=== PATIENT | female | born 1945 | race Caucasian/White ===

== ENCOUNTER 2022-07-18 21:47 | Inpatient (IN) ==
[2022-07-18] MEDS ORDERED: SODIUM CHLORIDE 0.9% 1000ML 500 ML IV STA (22:02)
[2022-07-18] MEDS ORDERED: SODIUM CHLORIDE 0.9% 1000ML 1,000 ML IV STA (22:02)
--- NOTE | 2022-07-18 22:07 | Emergency Department Note ---
Impression & Plan Severe sepsis, Acute dehydration, Acute UTI (urinary tract infection), Inferior dislocation of right shoulder, Acute hypernatremia ED Provider Note Name: AAKASH BERG Age: 77 Sex: F Arrives Via: Ambulance Informant: Patient (initially poor historian) ED Provider: Shai Malin MD Chief Complaint: Altered mental status Impression: As per impressions above Medical Decision Makin-year-old female with no known past medical history arrives for evaluation of altered mental status. She was found laying on the floor at home moaning in pain with deformity of the right shoulder and obtunded. On arrival patient is tachycardic, hypothermic. She is severely dehydrated appearing. I will note prior to arrival patient received IV Ancef via EMS due to the shoulder deformity. She also had received some fentanyl and 300 mL of IV normal saline. On arrival I immediately started sepsis work-up based on findings. She had blood cultures, lactate, fluids started. She was given empiric cefepime. Unfortunately there was an issue with the lab and she had delayed to initial labs besides the elevated troponin as she had required repeat lab draws. Patient meanwhile was given 2 L normal saline. This covers a 30/kg bolus and following this patient is awake alert oriented and vastly improved. Repeat volume status exam post sepsis resuscitation reveals patient much better hydrated vitals improved and she is in no distress. Examination concerning for inferior shoulder dislocation which was confirmed by x-ray. Patient was given a small dose of Dilaudid as she was coming to with the rehydration. Pain was controlled. She was able to tolerate gentle reduction of the shoulder by me. Repeat imaging reveals shoulder reduced properly. She has good pulses and sensation on repeat examination. She does have a significant amount of edema of the entire shoulder area as well as bruising. A CT of the head and cervical spine was obtained given the altered mental status and fall which is fortunately negative for acute findings. Labs consistent with severe dehydration and there is a significant white blood cell count elevation in the setting of an elevated lactic acid. This is consistent with sepsis given the likely source as a UTI. UA is concentrated and with blood suspect rhabdo. Unclear why CK is not elevated given evidence otherwise of rhabdo. Continue to receive IV fluids. Troponin is elevated I suspect this is secondary to rhabdo as patient has no significant chest pain and this would more go along with the injury she sustained in the setting of severe dehydration. Daughter at bedside drove up from [place]. He has probably 2 to 3 days the patient was not responding to phone calls. She has been having some falls the last few weeks. Prior Medical Record and Triage/Nursing Notes reviewed by Me Differentials:Infection, dehydration, metabolic abnormality, hypo/hyperglycemia, electrolyte disturbance, anemia, hypoxia, cardiac sources, intracerebral event, toxicologic, neurologic, as well as other pathologies. Repeat Volume Status & Tissue Perfusion Assessment: 12:41am on 07/19/22. BP 152/98 HR 102 O2Sat 100% RR16 T37.2C. Patient awake alert oriented in no distress. She appears much better hydrated. She is starting to make more urine. Cap refill is brisk with good pulses throughout. Breathing comfortably and in no distress. Vital Signs: reviewed and remarkable for tachycardia, hypothermia Interventions: Normal saline bolus 2 L IV, cefepime 2 g IV, Dilaudid 0.5 mg IV x2, Labs:Reviewed and remarkable for elevated sodium/chloride, elevated BUN, elevated lactate, elevated troponin, UA concerning for infection versus concentration versus rhabdo Imaging: Radiologist interpretation reviewed by me: X-rays of the right shoulder reveal an inferior shoulder dislocation which on repeat x-ray is reduced with small avulsion fracture within joint. 1 view chest x-ray reveals no infiltrate, pneumothorax or other acute findings. 1 view pelvis x-ray reveals no fracture nor dislocation. CT of the head and cervical spine reveals no fracture nor dislocation EKG:Indication altered mental status. Interpretation by me. Sinus tachycardia at 111 bpm with a QTC of 524. There is no previous EKG for comparison. She does have some lateral ST depressions. No ectopy nor acute STEMI appreciated. Cardiac/Tele Monitoring: Cardiac Monitoring: An Order was placed for continuous cardiac monitoring. The monitor shows a rate of 105 with a sinus tach rhythm. [facility] Plan: Disposition:Hospitalization. Condition: Good History of Present Illness:77-year-old female arrives for evaluation of falling on the ground. Patient had been seen in 6 days. She was found laying on the ground in her house. She was confused altered and cold. She had a deformity of the right shoulder and arm was splinted in position. Patient received 100 mcg of fentanyl IV, Ancef 2 g IV, 300 mL warm saline IV by EMS. Patient is confused she does not know where she is. She notes her arm hurts her. She denies any other symptoms but she is too confused to get a full story. ROS: Unable to obtain due to altered mental status and confusion Past Medical History:Unable to obtain due to no mental status confusion Past Surgical History:Unable to obtain due to no mental status confusion Family History:Unable to obtain due to no mental status confusion Social History:Unable to obtain due to no mental status confusion Home Medications:Unable to obtain due to no mental status confusion Allergies:Unable to obtain due to no mental status confusion Vitals:Blood Pressure: 145/120, Pulse 120, RR 25, T 35.2C, O2 97% on RA Physical Exam: GENERAL: Patient is unwell.dehydrated appearing and in minimal distress. Cool to touch EYES: No scleral icterus, unremarkable pupils. ENT: Mucous membranes dry, no nasal congestion. NECK: No masses appreciated, nomeningismus, trachea is midline. RESPIRATORY: No dyspnea. Clear to auscultation and equal bilaterally. No wheeze, no rhonchi. CARDIOVASCULAR: Regular rate and rhythm.No murmurs, rubs, gallops appreciated. GASTROINTESTINAL: Abdomen soft, non-tender, no peritonitis.Bowel sounds positive.No masses appreciated. BACK: No midline tenderness, no CVA tenderness EXTREMITIES: Right arm held straight up above head with deformity of should joint, swelling, bruising. Distal sensation/movement and pulses intact. Weakly moves left arm/legs NEUROLOGIC: Confused, no acute motor or sensory deficits, no focal weakness, cranial nerves grossly intact. SKIN: Mottling throughout with some bruising left breast. No rash, no jaundice, no diaphoresis. GCS: 13 ED Course: Times/Reassessments: Patient reevaluated many times throughout the stay. She had rapid improvement of her mental status with resuscitation. Patient b reathing comfortably no distress and daughter at bedside after few hours having driven from [place]. Agreeable to hospitalization. Procedures: Right shoulder reduction. Indication dislocation inferiorly of the right shoulder. Unable to obtain consent given patient is obtunded and there is no contact information on the chart. It was felt that reduction of shoulder was in best interest of patient. Gentle caudal traction was placed on the patient's arm while manipulation of the palpated humeral head within the axilla slowly rotated the shoulder into the joint. Shoulder easily slid into place. Patient tolerated this well without significant distress. Repeat examination reveals sensation intact, movement intact and pulses good. Repeat evaluation on several occasions reveals no evidence of compartment syndrome nor neurovascular compromise. Repeat x-rays reveal reduction properly of the shoulder. Critical Care: I have personally spent 35 minutes of critical care time in the direct management of this patient. Severe Sepsis secondary to UTI causing AMS. This was a life/limb threatening event. This 35 minutes is in excess of all separately billable procedures. Shai Malin MD Past Med/Surg History Social History Smoking Status: Never smoker Feels Safe at Home: Yes Home Meds Home Medications Medication Instructions Recorded Confirmed aspirin 81 mg capsule,delayed 81 mg PO DAILY 07/19/22 07/19/22 release atenolol 50 mg tablet 50 mg PO DAILY 07/19/22 07/19/22 atorvastatin 10 mg tablet 10 mg PO DAILY 07/19/22 07/19/22 benzonatate 100 mg capsule 100 mg PO TID PRN Cough 07/19/22 07/19/22 escitalopram oxalate 20 mg tablet 20 mg PO DAILY 07/19/22 07/19/22 lisinopril 10 mg tablet 10 mg PO HS 07/19/22 07/19/22 mirtazapine 15 mg tablet 15 mg PO HS 07/19/22 07/19/22 omeprazole 20 mg capsule,delayed 20 mg PO BID 07/19/22 07/19/22 release Results & Data (ED) Vital Signs Vital Signs - 24 hr 07/18/22 22:26 07/18/22 22:26 07/18/22 22:26 Temperature 35.2 C L Temperature Source Rectal Pulse Rate 120 H Pulse Rate [Apical] 117 H Pulse Rhythm [Apical] Pulse Strength [Apical] Respiratory Rate 25 H 31 H Respiratory Effort / Characteristics Non-Labored Respiratory Depth Normal Respiratory Pattern Blood Pressure 145/120 H Blood Pressure [Left Arm] 134/103 H Blood Pressure Mean 128 Blood Pressure Mean [Left Arm] 113 Blood Pressure Position [Left Arm] Pulse Oximetry 97 99 97 Oxygen Delivery Method Room Air Room Air Room Air Sepsis Recent Fever Within 48 Hours No Sepsis New/Unexplained Change in Mental Status No Sepsis Action Taken by Nursing Physician Notified 07/18/22 22:33 07/18/22 22:47 07/19/22 00:00 Temperature 36.1 C L Temperature Source Oral Pulse Rate Pulse Rate [Apical] 117 H 106 H 99 H Pulse Rhythm [Apical] Regular Regular Pulse Strength [Apical] Normal Normal Respiratory Rate 26 H 18 20 Respiratory Effort / Characteristics Non-Labored Non-Labored Respiratory Depth Normal Normal Respiratory Pattern Regular Blood Pressure Blood Pressure [Left Arm] 134/103 H 152/98 H Blood Pressure Mean Blood Pressure Mean [Left Arm] 113 116 Blood Pressure Position [Left Arm] Lying Lying Pulse Oximetry 100 100 98 Oxygen Delivery Method Room Air Room Air Room Air Sepsis Recent Fever Within 48 Hours Sepsis New/Unexplained Change in Mental Status Sepsis Action Taken by Nursing Laboratory Data Result diagrams: 07/19/22 00:08 07/19/22 00:08 Lab Results 07/18/22 07/18/22 07/19/22 Range/Units 22:00 22:43 00:08 WBC 22.60 H (4.8-10.8) K/ul RBC 5.02 (3.93-5.22) M/uL Hgb 15.8 (12.0-16.0) g/dl Hct 47.2 H (34.1-44.9) % MCV 94.0 (80.0-100.0) fL MCH 31.5 (25.0-34.0) pg MCHC 33.5 (32.0-36.0) g/dL RDW Std Deviation 49.6 H (36.4-46.3) fL RDW Coeff of Jessie 14.5 (11.5-14.5) % Plt Count 344 (130-400) K/uL MPV 10.6 (9.4-12.3) fL Immature Gran % (Auto) 0.6 % Neut % (Auto) 81.9 % Lymph % (Auto) 6.7 % Eddy % (Auto) 10.7 % Eos % (Auto) 0.0 % Baso % (Auto) 0.1 % Neut # (Auto) 18.52 H (1.4-6.5) K/uL Lymph # (Auto) 1.51 (1.2-3.4) K/uL Eddy # (Auto) 2.41 H (0.24-0.82) K/uL Eos # (Auto) 0.00 (0-0.50) K/uL Baso # (Auto) 0.03 (0-0.2) K/uL Immature Gran # (Auto) 0.13 H (0.00-0.02) K/uL PT (9.0-12.0) Seconds INR (0.9-1.1) APTT (21.0-31.0) Seconds PTT Ratio Sodium (136-145) mmol/L Potassium (3.5-5.1) mmol/L Chloride (98-107) mmol/L Carbon Dioxide (21-32) mmol/L Anion Gap (3-11) BUN (6-23) mg/dl Creatinine (0.6-1.2) mg/dl Est Cr Clr Drug Dosing ml/min Est GFR ( Amer) ml/min Est GFR (Non-Af Amer) ml/min BUN/Creatinine Ratio (10-20) Glucose (70-99(Fasting)) mg/dl Lactate 3.4 H* (0.4-2.0) mmol/L Calcium (8.5-10.1) mg/dl Magnesium (1.7-2.4) mg/dl Total Bilirubin (0.2-1.0) mg/dl Direct Bilirubin (0-0.2) mg/dl AST (13-39) U/L ALT (7-52) U/L Alkaline Phosphatase (34-104) U/L Total Creatine Kinase (26-192) U/L Troponin I High Sens (0-14) pg/ml Total Protein (6.0-8.3) gm/dl Albumin (3.4-5.0) gm/dl Procalcitonin (0-0.5) ng/ml Urine Color Dark Yellow Urine Appearance Clear (Clear) Urine pH 6.0 (4.5-7.5) Ur Specific [place] 1.025 (1.000-1.030) Urine Protein 3+ H (Negative) Urine Glucose (UA) Negative (Negative) Urine Ketones 1+ H (Negative) Urine Blood Negative (Negative) Urine Nitrite Negative (Negative) Urine Bilirubin 1+ H (Negative) Urine Urobilinogen Negative (Negative) Ur Leukocyte Esterase Trace H (Negative) Urine WBC (Auto) 1-5 (0-5) /hpf Urine RBC (Auto) 0-4 (0-4) /hpf U Hyaline Cast (Auto) >30 H (0-5) /lpf U Epithel Cells (Auto) >30 H (0-5) /lpf Urine Bacteria (Auto) 1+ H (Negative) Ur Renal Epithelial Cell Not Reportable Granular Casts 1-5 H (0) /lpf SARS-CoV-2, RNA, NAAT (NEGATIVE) 07/19/22 07/19/22 07/19/22 Range/Units 00:08 00:08 00:08 WBC (4.8-10.8) K/ul RBC (3.93-5.22) M/uL Hgb (12.0-16.0) g/dl Hct (34.1-44.9) % MCV (80.0-100.0) fL MCH (25.0-34.0) pg MCHC (32.0-36.0) g/dL RDW Std Deviation (36.4-46.3) fL RDW Coeff of Jessie (11.5-14.5) % Plt Count (130-400) K/uL MPV (9.4-12.3) fL Immature Gran % (Auto) % Neut % (Auto) % Lymph % (Auto) % Eddy % (Auto) % Eos % (Auto) % Baso % (Auto) % Neut # (Auto) (1.4-6.5) K/uL Lymph # (Auto) (1.2-3.4) K/uL Eddy # (Auto) (0.24-0.82) K/uL Eos # (Auto) (0-0.50) K/uL Baso # (Auto) (0-0.2) K/uL Immature Gran # (Auto) (0.00-0.02) K/uL PT 14.2 H (9.0-12.0) Seconds INR 1.4 H (0.9-1.1) APTT 25.2 (21.0-31.0) Seconds PTT Ratio 0.9 Sodium 156 H* (136-145) mmol/L Potassium 3.2 L (3.5-5.1) mmol/L Chloride 125 H (98-107) mmol/L Carbon Dioxide 20 L (21-32) mmol/L Anion Gap 11 (3-11) BUN 65 H (6-23) mg/dl Creatinine 0.89 (0.6-1.2) mg/dl Est Cr Clr Drug Dosing 44.1 ml/min Est GFR ( Amer) 71.4 ml/min Est GFR (Non-Af Amer) 61.6 ml/min BUN/Creatinine Ratio 73.0 H (10-20) Glucose 155 H (70-99(Fasting)) mg/dl Lactate (0.4-2.0) mmol/L Calcium 8.1 L (8.5-10.1) mg/dl Magnesium 2.1 (1.7-2.4) mg/dl Total Bilirubin 1.2 H (0.2-1.0) mg/dl Direct Bilirubin 0.3 H (0-0.2) mg/dl AST 19 (13-39) U/L ALT 25 (7-52) U/L Alkaline Phosphatase 78 (34-104) U/L Total Creatine Kinase (26-192) U/L Troponin I High Sens 93.5 H* (0-14) pg/ml Total Protein 5.3 L (6.0-8.3) gm/dl Albumin 3.0 L (3.4-5.0) gm/dl Procalcitonin < 0.05 (0-0.5) ng/ml Urine Color Urine Appearance (Clear) Urine pH (4.5-7.5) Ur Specific [place] (1.000-1.030) Urine Protein (Negative) Urine Glucose (UA) (Negative) Urine Ketones (Negative) Urine Blood (Negative) Urine Nitrite (Negative) Urine Bilirubin (Negative) Urine Urobilinogen (Negative) Ur Leukocyte Esterase (Negative) Urine WBC (Auto) (0-5) /hpf Urine RBC (Auto) (0-4) /hpf U Hyaline Cast (Auto) (0-5) /lpf U Epithel Cells (Auto) (0-5) /lpf Urine Bacteria (Auto) (Negative) Ur Renal Epithelial Cell Granular Casts (0) /lpf SARS-CoV-2, RNA, NAAT (NEGATIVE) 07/19/22 07/19/22 07/19/22 Range/Units 00:08 00:21 01:17 WBC (4.8-10.8) K/ul RBC (3.93-5.22) M/uL Hgb (12.0-16.0) g/dl Hct (34.1-44.9) % MCV (80.0-100.0) fL MCH (25.0-34.0) pg MCHC (32.0-36.0) g/dL RDW Std Deviation (36.4-46.3) fL RDW Coeff of Jessie (11.5-14.5) % Plt Count (130-400) K/uL MPV (9.4-12.3) fL Immature Gran % (Auto) % Neut % (Auto) % Lymph % (Auto) % Eddy % (Auto) % Eos % (Auto) % Baso % (Auto) % Neut # (Auto) (1.4-6.5) K/uL Lymph # (Auto) (1.2-3.4) K/uL Eddy # (Auto) (0.24-0.82) K/uL Eos # (Auto) (0-0.50) K/uL Baso # (Auto) (0-0.2) K/uL Immature Gran # (Auto) (0.00-0.02) K/uL PT (9.0-12.0) Seconds INR (0.9-1.1) APTT (21.0-31.0) Seconds PTT Ratio Sodium (136-145) mmol/L Potassium (3.5-5.1) mmol/L Chloride (98-107) mmol/L Carbon Dioxide (21-32) mmol/L Anion Gap (3-11) BUN (6-23) mg/dl Creatinine (0.6-1.2) mg/dl Est Cr Clr Drug Dosing ml/min Est GFR ( Amer) ml/min Est GFR (Non-Af Amer) ml/min BUN/Creatinine Ratio (10-20) Glucose (70-99(Fasting)) mg/dl Lactate 2.0 (0.4-2.0) mmol/L Calcium (8.5-10.1) mg/dl Magnesium (1.7-2.4) mg/dl Total Bilirubin (0.2-1.0) mg/dl Direct Bilirubin (0-0.2) mg/dl AST (13-39) U/L ALT (7-52) U/L Alkaline Phosphatase (34-104) U/L Total Creatine Kinase 71 (26-192) U/L Troponin I High Sens (0-14) pg/ml Total Protein (6.0-8.3) gm/dl Albumin (3.4-5.0) gm/dl Procalcitonin (0-0.5) ng/ml Urine Color Urine Appearance (Clear) Urine pH (4.5-7.5) Ur Specific [place] (1.000-1.030) Urine Protein (Negative) Urine Glucose (UA) (Negative) Urine Ketones (Negative) Urine Blood (Negative) Urine Nitrite (Negative) Urine Bilirubin (Negative) Urine Urobilinogen (Negative) Ur Leukocyte Esterase (Negative) Urine WBC (Auto) (0-5) /hpf Urine RBC (Auto) (0-4) /hpf U Hyaline Cast (Auto) (0-5) /lpf U Epithel Cells (Auto) (0-5) /lpf Urine Bacteria (Auto) (Negative) Ur Renal Epithelial Cell Granular Casts (0) /lpf SARS-CoV-2, RNA, NAAT NEGATIVE (NEGATIVE) Administered Medications Sodium Chloride (Nss 1000ml) 1,000 mls @ 150 mls/hr IV .Q6H40M LESLY Stop: 08/18/22 00:44 Last Admin: 07/19/22 01:30 Dose: 150 mls/hr Documented By: TAIWO Discontinued Medications Hydromorphone HCl (Hydromorphone Inj 0.5 Mg/0.5 Ml Syr) 0.5 mg IV NOW STA Stop: 07/18/22 22:45 Last Admin: 07/18/22 22:50 Dose: 0.5 mg Documented By: TAIWO Hydromorphone HCl (Hydromorphone Inj 0.5 Mg/0.5 Ml Syr) 0.5 mg IV NOW STA Stop: 07/19/22 01:05 Last Admin: 07/19/22 02:54 Dose: 0.5 mg Documented By: TAIWO Sodium Chloride (Nss 1000ml) 500 mls @ 999 mls/hr IV .Q31M STA Stop: 07/18/22 22:32 Last Infusion: 07/19/22 00:37 Dose: 0 mls/hr Documented By: Admin: 07/19/22 00:05 Dose: 999 mls/hr Documented By: TAIWO Sodium Chloride (Nss 1000ml) 1,000 mls @ 999 mls/hr IV .Q1H1M STA Stop: 07/18/22 23:02 Last Infusion: 07/18/22 23:55 Dose: 0 mls/hr Documented By: Admin: 07/18/22 22:51 Dose: 999 mls/hr Documented By: TAIWO Cefepime HCl (Maxipime) 2,000 mg in 20 mls @ 5 mls/min IV NOW STA; Protocol Stop: 07/18/22 22:47 Last Admin: 07/18/22 22:50 Dose: 5 mls/min Documented By: TAIWO Imaging Data Radiologist's Impression: Chest X-Ray 07/18/22 22:02 XR chest 1V portable HISTORY: 77 years-old Female Sepsis acute sepsis COMPARISON: Right shoulder and humerus radiographs of same day TECHNIQUE: AP view of the chest FINDINGS: Cardiomediastinal and hilar silhouettes are within normal limits. No pneumothorax, pleural effusion, airspace consolidation or overt pulmonary edema. Degenerative changes of the shoulders and spine. Dislocated right glenohumeral j oint. Surgical clips of the right upper quadrant abdomen. IMPRESSION: 1. No acute process of the chest. 2. Dislocated right glenohumeral joint. Please refer to the shoulder and humerus radiographs of same day. ACT 112: Negative or not required by law. The above report was generated using voice recognition software. It may contain grammatical, syntax or spelling errors. Electronically signed by: Adolfo Doherty M.D. 07/18/2022 11:44 PM Humerus X-Ray 07/18/22 22:02 XR shoulder RT min 2V routine, XR humerus RT 2V HISTORY: 77 years-old Female right shoulder deformity acute pain of the right shoulder and upper arm status post fall COMPARISON: Chest radiograph of same day TECHNIQUE: 2 views of the right shoulder with 2 views of the right humerus FINDINGS: SHOULDER: Inferior glenohumeral dislocation with the humeral head positioned approximately 5.5 cm inferior and anterior to the glenoid. No associated acute fracture ident ified. The imaged lung samay[place] appear clear. HUMERUS: Dislocated glenohumeral joint as above. The right arm is positioned above the patient's head. No acute fracture identified. There is soft tissue swelling of the upper extremity. IMPRESSION: 1. Inferior shoulder dislocation (luxatio erecta). 2. No acute fracture identified. ACT 112: Negative or not required by law. The above report was generated using voice recognition software. It may contain grammatical, syntax or spelling errors. Electronically signed by: Adolfo Doherty M.D. 07/18/2022 11:50 PM Pelvis X-Ray 07/18/22 22:07 XR pelvis 1-2V routine HISTORY: 77 years-old Female fall, ams acute pain of the pelvis status post fall COMPARISON: None TECHNIQUE: AP view the pelvis FINDINGS: Limited exam secondary to positioning. There is questioned cortical irregularity involving the superior left femoral neck. Mild osteoarthritis of the hips. No dislocation or avascular necrosis. Unremarkable soft tissues. The pelvic ring appears intact. IMPRESSION: Limited exam secondary to positioning. There is questioned cortical irregularity of the left femoral neck which may be positional. Dedicated left hip radiographs recommended. ACT 112: Negative or not required by law. The above report was generated using voice recognition software. It may contain grammatical, syntax or spelling errors. Electronically signed by: Adolfo Doherty M.D. 07/18/2022 11:45 PM Shoulder X-Ray 07/18/22 22:07 XR shoulder RT min 2V routine, XR humerus RT 2V HISTORY: 77 years-old Female right shoulder deformity acute pain of the right shoulder and upper arm status post fall COMPARISON: Chest radiograph of same day TECHNIQUE: 2 views of the right shoulder with 2 views of the right humerus FINDINGS: SHOULDER: Inferior glenohumeral dislocation with the humeral head positioned approximately 5.5 cm inferior and anterior to the glenoid. No associated acute fracture identified. The imaged lung samay[place] appear clear. HUMERUS: Dislocated glenohumeral joint as above. The right arm is positioned above the patient's head. No acute fracture identified. There is soft tissue swelling of the upper extremity. IMPRESSION: 1. Inferior shoulder dislocation (luxatio erecta). 2. No acute fracture identified. ACT 112: Negative or not required by law. The above report was generated using voice recognition software. It may contain grammatical, syntax or spelling errors. Electronically signed by: Adolfo Doherty M.D. 07/18/2022 11:50 PM Shoulder X-Ray 07/18/22 23:50 XR shoulder RT 1V HISTORY: 77 years-old Female post reduction status post reduction of the right glenohumeral joint COMPARISON: Right humerus radiographs of same day at 11:09 PM TECHNIQUE: AP view of the right shoulder FINDINGS: Status post reduction of the right glenohumeral joint with persistent soft tissue swelling. 4 mm bone fragment projects along the axillary recess. No acute fracture identified. IMPRESSION: 1. Status post reduction of the right glenohumeral joint. 2. No acute fracture identified. 3. 4 mm radiodensity projecting over the axillary recess is suggestive of a loose body. ACT 112: Negative or not required by law. The above report was generated using voice recognition software. It may contain grammatical, syntax or spelling errors. Electronically signed by: Adolfo Doherty M.D. 07/19/2022 12:03 AM Discharge Plan Visit Data Chief Complaint: Fall Stated Complaint: FALL >24HRS ON FLOOR ARM PAIN ED Provider: Shai Malin Discharge Problem: Severe sepsis, Acute dehydration, Acute UTI (urinary tract infection), Inferior dislocation of right shoulder, Acute hypernatremia Forms Stand Alone Forms: My [facility] [place] [employer] Prescriptions Prescriptions: No Action atorvastatin 10 mg tablet 10 mg PO DAILY benzonatate 100 mg capsule 100 mg PO TID PRN (Reason: Cough) mirtazapine 15 mg tablet 15 mg PO HS atenolol 50 mg tablet 50 mg PO DAILY escitalopram oxalate 20 mg tablet 20 mg PO DAILY aspirin 81 mg Capsule,Delayed Release(Dr/Ec) 81 mg PO DAILY omeprazole 20 mg Capsule,Delayed Release(Dr/Ec) 20 mg PO BID lisinopril 10 mg Tablet 10 mg PO HS Referrals Referrals: PCP,NO [Primary Care Provider] - : Inferior dislocation of right shoulder Qualifiers: Encounter type: initial encounter Qualified Code(s): S43.034A - Inferior dislocation of right humerus, initial encounter
[2022-07-18] MEDS ORDERED: HYDROmorphone INJ 0.5 MG/0.5 ML SYR IV STA (22:44)
[2022-07-18] MEDS ORDERED: CEFEPIME 2,000 MG/20 ML VIAL IV STA (22:44)
[2022-07-18 23:10] LABS: Appearance Urine Clear (Clear); Blood Urine Negative (Negative); Color Urine Dark Yellow; Epithelial Cell Urine Auto >30 /lpf (0-5); Glucose Urine UA Negative (Negative); Ketones Urine 1+ (Negative); Leukocyte Esterase Urine Trace (Negative); Nitrite Urine Negative (Negative); Protein Urine 3+ (Negative); RBC Urine Automated 0-4 /hpf (0-4); Specific Gravity Urine 1.025 (1.000-1.030); Urobilinogen Urine Negative (Negative)
[2022-07-18 23:16] LABS: Bilirubin Urine 1+ (Negative)
[2022-07-18 23:28] LABS: Cast Urine Automated >30 /lpf (0-5)
[2022-07-18 23:29] LABS: Bacteria Urine Automated 1+ (Negative)
--- NOTE | 2022-07-18 23:45 | XRay Report ---
XR chest 1V portable HISTORY: 77 years-old Female Sepsis acute sepsis COMPARISON: Right shoulder and humerus radiographs of same day TECHNIQUE: AP view of the chest FINDINGS: Cardiomediastinal and hilar silhouettes are within normal limits. No pneumothorax, pleural effusion, airspace consolidation or overt pulmonary edema. Degenerative changes of the shoulders and spine. Dis located right glenohumeral joint. Surgical clips of the right upper quadrant abdomen. IMPRESSION: 1. No acute process of the chest. 2. Dislocated right glenohumeral joint. Please refer to the shoulder and humerus radiographs of same day. ACT 112: Negative or not required by law. The above report was generated using voice recognition software. It may contain grammatical, syntax o r spelling errors. Electronically signed by: Adolfo Doherty M.D. 07/18/2022 11:44 PM
--- NOTE | 2022-07-18 23:47 | XRay Report ---
XR pelvis 1-2V routine HISTORY: 77 years-old Female fall, ams acute pain of the pelvis status post fall COMPARISON: None TECHNIQUE: AP view the pelvis FINDINGS: Limited exam secondary to positioning. There is questioned cortical irregularity involving the superi or left femoral neck. Mild osteoarthritis of the hips. No dislocation or avascular necrosis. Unremark able soft tissues. The pelvic ring appears intact. IMPRESSION: Limited exam secondary to positioning. There is questioned cortical irregularity of the l eft femoral neck which may be positional. Dedicated left hip radiographs recommended. ACT 112: Negative or not required by law. The above report was generated using voice recognition software. It may contain grammatical, syntax o r spelling errors. Electronically signed by: Adolfo Doherty M.D. 07/18/2022 11:45 PM
--- NOTE | 2022-07-18 23:53 | XRay Report ---
XR shoulder RT min 2V routine, XR humerus RT 2V HISTORY: 77 years-old Female right shoulder deformity acute pain of the right shoulder and upper arm status post fall COMPARISON: Chest radiograph of same day TECHNIQUE: 2 views of the right shoulder with 2 views of the right humerus FINDINGS: SHOULDER: Inferior glenohumeral dislocation with the humeral head positioned approximately 5.5 cm inferior and anterior to the glenoid. No associated acute fracture identified. The imaged lung samay[place] appear clear . HUMERUS: Dislocated glenohumeral joint as above. The right arm is positioned above the patient's head. No acut e fracture identified. There is soft tissue swelling of the upper extremity. IMPRESSION: 1. Inferior shoulder dislocation (luxatio erecta). 2. No acute fracture identified. ACT 112: Negative or not required by law. The above report was generated using voice recognition software. It may contain grammatical, syntax o r spelling errors. Electronically signed by: Adolfo Doherty M.D. 07/18/2022 11:50 PM
--- NOTE | 2022-07-19 00:05 | XRay Report ---
XR shoulder RT 1V HISTORY: 77 years-old Female post reduction status post reduction of the right glenohumeral joint COMPARISON: Right humerus radiographs of same day at 11:09 PM TECHNIQUE: AP view of the right shoulder FINDINGS: Status post reduction of the right glenohumeral joint with persistent soft tissue swelling. 4 mm bone fragment projects along the axillary recess. No acute fracture identified. IMPRESSION: 1. Status post reduction of the right glenohumeral joint. 2. No acute fracture identified. 3. 4 mm radiodensity projecting over the axillary recess is suggestive of a loose body. ACT 112: Negative or not required by law. The above report was generated using voice recognition software. It may contain grammatical, syntax o r spelling errors. Electronically signed by: Adolfo Doherty M.D. 07/19/2022 12:03 AM
[2022-07-19 00:23] LABS: Basophils # (auto) 0.03 K/uL (0-0.2); Basophils % (auto) 0.1 %; Hematocrit (blood only) 47.2 % (34.1-44.9); Hemoglobin 15.8 g/dl (12.0-16.0); Immature Granulocytes # (auto) 0.13 K/uL (0.00-0.02); Immature Granulocytes % (auto) 0.6 %; Lymphocytes # (auto) 1.51 K/uL (1.2-3.4); Lymphocytes % (auto) 6.7 %; Mean Corpuscular Hemoglobin 31.5 pg (25.0-34.0); Mean Corpuscular Hgb Conc 33.5 g/dL (32.0-36.0); Mean Platelet Volume 10.6 fL (9.4-12.3); Monocytes # (auto) 2.41 K/uL (0.24-0.82); Monocytes % (auto) 10.7 %; Neutrophils # (auto) 18.52 K/uL (1.4-6.5); Neutrophils % (auto) 81.9 %; Platelet Count 344 K/uL (130-400); RDW Coefficient of Variation 14.5 % (11.5-14.5); RDW Standard Deviation 49.6 fL (36.4-46.3); Red Blood Count 5.02 M/uL (3.93-5.22)
[2022-07-19 00:35] LABS: INR 1.4 (0.9-1.1); Partial Thromboplastin Ratio 0.9; Partial Thromboplastin Time 25.2 Seconds (21.0-31.0); Prothrombin Time 14.2 Seconds (9.0-12.0)
[2022-07-19] MEDS ORDERED: SODIUM CHLORIDE 0.9% 1000ML 1,000 ML IV SCH (00:45)
[2022-07-19 00:51] LABS: Bilirubin Direct 0.3 mg/dl (0-0.2); Bilirubin,Total 1.2 mg/dl (0.2-1.0); Calcium 8.1 mg/dl (8.5-10.1); Creatinine Clr Calc Pharmacy 44.1 ml/min; Est GFR (African American) 71.4 ml/min; Est GFR (Non-African American) 61.6 ml/min; Magnesium 2.1 mg/dl (1.7-2.4); Potassium 3.2 mmol/L (3.5-5.1); Total Protein 5.3 gm/dl (6.0-8.3); Troponin I High Sensitivity 93.5 pg/ml (0-14)
[2022-07-19] MEDS ORDERED: HYDROmorphone INJ 0.5 MG/0.5 ML SYR IV STA (01:04)
[2022-07-19] MEDS ORDERED: POTASSIUM CHLORIDE 20 MEQ/15 ML UDC PO STA (02:50)
[2022-07-19] MEDS ORDERED: Patient's ALLERGY Info needs ENTERED STA (02:56)
[2022-07-19] MEDS ORDERED: SODIUM CHLORIDE 0.45 % 1,000 ML IV SCH (05:34)
[2022-07-19] MEDS ORDERED: oxyCODONE HCL IR 5 MG TAB (IMMEDIATE RELEASE) PO PRN (05:34)
[2022-07-19] MEDS ORDERED: POLYETHYLENE (MIRALAX) 17 GM PACK PO PRN (05:34)
[2022-07-19] MEDS ORDERED: ONDANSETRON INJ 2 MG/ML 2 ML VIAL IV PRN (05:34)
[2022-07-19] MEDS ORDERED: BENZONATATE 100 MG CAPSULE PO PRN (05:34)
--- NOTE | 2022-07-19 06:24 | History and Physical Report ---
DATE OF ADMISSION: 07/18/2022. CHIEF COMPLAINT: Fall. HISTORY OF PRESENT ILLNESS: A 77-year-old female with past medical history significant for hyperlipidemia, prediabetes, hypertension, gastroparesis, gastroesophagitis, cystocele, osteoporosis, depression, who lives alone, comes with a fall. As per daughter, patient is active. She does not use any walker or cane. She usually cooks her own food, takes care of herself. She can cut the grass. Daughter does not call regularly, but calls and checks up her. When she does not answer the phone, she was not worried, because she does forget to charge her phone.Her other daughter was calling for the last 4 days and she was not answering. Finally, they called the neighbors and 911 to check on her. With the neighbor checked on her, she was found confused, fallen between dresser and bed, which was very narrow space. The patient does not remember how she fell.She was brought to the hospital and she was very altered when she came in. Her labs showed white count was 22,000, sodium was 156, potassium 3.2, BUN 65, creatinine normal at 0.8. Troponin I high sensitivity then was 93. Total creatinine kinase of 71. Urinalysis positive and she also had right right shoulder dislocation. After given fentanyl, shoulder was reduced in the ER. Currently, alert, awake, and oriented to name and place. Could tell her date of , could tell the month. Daughter, who lives in [place], came, is in the room. Except for right shoulder pain, she denies any other pain. No headache, no neck pain. No back pain or belly pain. No chest pain, no pain in the legs. Does not feel short of breath. No cough. Afebrile. No nausea. Normal bowel and bladder movements per the patient , Appetite is not great but she can swallow okay. ALLERGIES: PER [facility], THE PATIENT IS ALLERGIC TO ALENDRONATE, AMOXICILLIN, SULFA ANTIBIOTICS, AND METOCLOPRAMIDE. PAST MEDICAL HISTORY: As mentioned above. PAST SURGICAL HISTORY: Colonoscopy, EGD, removal of ovaries, cholecystectomy, total abdominal hysterectomy with removal of tubes. MEDICATIONS: As per [facility], the patient is on atenolol 50 mg p.o. daily, atorvastatin 10 mg p.o. daily, Lexapro 20 mg p.o. daily, lisinopril 10 mg p.o. daily, Remeron 15 mg p.o. daily, omeprazole 20 mg p.o. b.i.d., Premarin 0.625 mg cream as directed, benzonatate 100 mg p.o. t.i.d. p.r.n., aspirin 81 mg p.o. daily. FAMILY HISTORY: Significant for father has arthritis, mother has hypertension, arthritis. Daughter has Crohn's disease; mother has CABG. SOCIAL HISTORY: , currently lives alone. No smoking, no alcohol, no drug use. REVIEW OF SYSTEMS: As per HPI. Rest of the review of systems is negative. PHYSICAL EXAMINATION: GENERAL: The patient is old and frail, not in acute distress. VITAL SIGNS: Temperature 36.6, pulse 96, respiratory rate 21, blood pressure 137/86, oxygen 99% on room air. HEENT: Pupils equal, round and reactive to light. Oral mucosa somewhat dry. NECK: No JVD, no neck masses. CARDIOVASCULAR: S1 and S2 heard. Tachycardia. No murmurs. RESPIRATORY SYSTEM: Normal AP diameter. No accessory muscle use. No wheezing, no crackles. ABDOMEN: Soft, bowel sounds present, nontender, no distention. CENTRAL NERVOUS SYSTEM: Alert and oriented to name and place, could tell the month as June, could not tell the year and date. Recent and remote memory intact. No facial droop. Speech is clear. Moves extremities. EXTREMITIES: Pain with movement of the right shoulder. No edema, no erythema seen. LABORATORY DATA: WBC 22, hemoglobin 15.8, hematocrit 47.2, platelets 344. PT 14.2, INR 1.4, APTT 25.2. Sodium 156, potassium 3.2, chloride 125, CO2 of 20, BUN 65, creatinine of 0.8, serum glucose 155. Lactate 2, calcium 8.1, magnesium 2.1, total bilirubin 1.2, direct bilirubin 0.3, AST 19, ALT 25, alkaline phosphatase 78, total CK 71. Troponin I high sensitivity 93.5. Procalcitonin less than 0.05. Urinalysis was positive for leukocyte esterase and bacteria. SARS-CoV-2 rapid test negative. IMAGING DATA: Chest x-ray, no acute process in the chest. Dislocated right glenohumeral joint. Humerus x-ray inferior shoulder dislocation, no acute fracture identified. Pelvic x-ray, questionable cortical irregularity of the left femoral neck, which can be positional follow up radiographs recommended, shoulder surgery, inferior shoulder dislocation. No acute fracture identified. Cervical spine CT, preliminary report, no acute findings. CT head, preliminary report, no acute findings. Repeat shoulder x-ray, status post reduction of the right glenohumeral joint. EKG: Sinus tachycardia at a rate of 111, nonspecific ST abnormalities seen. ASSESSMENT AND PLAN: This is a 77-year-old female who presents with fall. 1. Fall, confused, found in the house falling between the dresser and bed could have been fallen 3 or 4 days ago. The patient does not remember, possible urinary tract infection contributing, hypernatremia contributing, currently alert and awake. PT, OT when stable. 2. Hypernatremia: Sodium of 156. Could be from dehydration. The patient is receiving half normal saline 100 mL per hour, slow correction. Will follow the repeat labs in am. Nephrology consult. 3. Hypokalemia: We will replace. 4. Elevated troponin. NO chest pans. We will follow the repeat labs. Repeat troponin. 5. Possible sepsis Urinary tract infection: Started on cefepime.Lactic acid 3.4 when she came in. Repeat lactic acid is 2. We will follow the cultures. 6. Hypertension: Continue home medication of atenolol and lisinopril with holding parameters. 7. Hyperlipidemia: Continue statin. 8. Depression: Continue Lexapro and Remeron. We will monitor. 9. Gastroesophageal reflux disease: Continue omeprazole. 10. Deep venous thrombosis prophylaxis: Placed on Lovenox. DISPOSITION: Closely monitor in the tele floor. PT/OT prior to discharge. Social service to help with discharge planning. Level 1 full code. Job ID: [id number] MTDD
--- NOTE | 2022-07-19 06:38 | CT Scan Report ---
CT SCAN OF THE BRAIN WITHOUT IV CONTRAST CLINICAL HISTORY: Change in mental status. Syncope. COMPARISON STUDY: No priors. TECHNIQUE: Unenhanced axial CT scan of the brain is performed from the vertex to the skull base. A do se lowering technique was utilized adhering to the principles of ALARA. FINDINGS: Brain parenchyma: There is age-related involutional change noting mild subcortical and periventricula r microangiopathic disease. There is no hemorrhage, mass effect, or evidence of acute territorial isc hemia by CT criteria. Verdin-white matter differentiation is preserved. No extra-axial fluid collection is seen. Ventricles, sulci, cisterns: Prominent secondary to involutional change. Intracranial vasculature: There is atherosclerotic calcification of the cavernous carotid arteries. Calvarium: The skeletal structures are osteopenic. No depressed calvarial fracture is identified. Sinuses and mastoids: The visualized paranasal sinuses are clear. The mastoid air cells are well pneu matized. Orbits: The bony orbits are grossly intact. IMPRESSION: There is no hemorrhage, mass effect, or evidence of acute territorial ischemia by CT mathieu pierre. ACT 112: Negative or not required by law. Electronically signed by: Erwin Spring M.D. 07/19/2022 6:37 AM
--- NOTE | 2022-07-19 06:48 | CT Scan Report ---
CT SCAN OF THE CERVICAL SPINE CLINICAL HISTORY: Fall. COMPARISON STUDY: No priors. TECHNIQUE: CT scan of the cervical spine is performed from the skull base to the upper thoracic spine . Images are reviewed in the axial, sagittal, and coronal planes. IV contrast was not administered fo r this examination. A dose lowering technique was utilized adhering to the principles of ALARA. CT DOSE: 954.61 mGy.cm FINDINGS: Skeletal structures: The skeletal structures are osteopenic. There is no evidence of fracture or subl uxation involving the cervical spine. Vertebral body height and alignment are maintained. Anterior os teophytes are seen throughout the The odontoid process and lateral masses are intact. The atlantoaxia l articulation is preserved noting productive degenerative change. The spinous processes appear intac t. There is mild cervical spondylosis, with facet arthropathy seen at several levels. Intervertebral discs: There is moderate disc space narrowing at C3-C4, C4-C5, C5-C6, and C6-C7. Central canal: Posterior disc osteophyte complexes are seen at all cervical levels between C3-C4 and C6-C7. This likely contributes to mild multilevel acquired compromising the central canal. Soft tissues: The prevertebral and paraspinous soft tissues are within normal limits. Atherosclerotic calcification is noted in the carotid bulbs. Calvarium: The visualized calvarium at the skull base appears intact. Brain parenchyma: Partially visualized brain parenchyma at the skull base is within normal limits not ing age-related involutional change. Sinuses and mastoids: The visualized paranasal sinuses are clear. The mastoid air cells are well pneu matized. Lung apices: Clear as visualized. IMPRESSION: There is no evidence of fracture or subluxation involving the cervical spine. ACT 112: Negative or not required by law. Electronically signed by: Erwin Spring M.D. 07/19/2022 6:46 AM
--- NOTE | 2022-07-19 07:18 | Electrocardiogram Report ---
Test Reason : Blood Pressure : / mmHG Vent. Rate : 111 BPM Atrial Rate : 111 BPM P-R Int : 114 ms QRS Dur : 084 ms QT Int : 386 ms P-R-T Axes : 073 067 166 degrees QTc Int : 524 ms Sinus tachycardia Possible Left atrial enlargement ST and T wave changes consistent with ischemia Prolonged QT Abnormal ECG No previous ECGs available Confirmed by Darrius Ng ([id number]) on 07/19/2022 7:18:05 AM Referred By: REFERRED SELF Confirmed By:Efra Ng
[2022-07-19] MEDS: PANTOprazole 40 MG TAB PO SCH ×2 (09:29→20:29)
[2022-07-19] MEDS: ESCITALOPRAM OXALATE 20 MG TAB PO SCH (09:30)
[2022-07-19] MEDS: ATORVASTATIN 10 MG TAB PO SCH (09:30)
[2022-07-19] MEDS: ATENOLOL 50 MG TABLET PO SCH (09:30)
--- NOTE | 2022-07-19 09:40 | Communication Note ---
Date of Service: July 19, 2022 77-year-old woman who lives alone and was brought in after found down following a wellness check by neighbors on 911 initiated by daughters who had not heard from her for few days. Patient seen and examined. Patient currently is alert and oriented to person, knows she is in the hospital but not which, not oriented to time. Reports some pain in the back of her head and right forearm. Denies any other symptoms or review of system. Labs notable for leukocytosis of 22,000,Hemoglobin of 16.6, hematocrit of 50, admitting sodium level of 156, chloride of 125, BUN of 65, lactate of three- point 42, total bilirubin of 1.2, UA showed trace leukocyte esterase. Fall Encephalopathy Hypernatremia, dehydration CT head did not show any acute fracture Shoulder XR noted Rt inferior shoulder dislocation s/p reduction IVF changed to D5W 100cc/h per Nephro Monitor Na to avoid precipitous drop Cefepime changed to ceftriaxone. Follow up urine cultures Avoid opioids for pain. Use tylenol Agree with other plans as detailed in H&P by Dr Wahl this AM
--- NOTE | 2022-07-19 09:55 | Nephrology Consultation ---
Date of Consultation July 19, 2022 Assessment & Plan (1) Acute hypernatremia: -2/ Volume depletion-- Poor oral intake/ Sepsis. - Has [facility] 1 lit [facility]2 [facility] - UOP is reasonable, BP has been good. - Fluid deficient @ 3l + ongoing losses@ 500 mls for Na 140 - d/c 1/2 NS, Start on D5W AT 100 mls/ hr, Encourage oral intake. - Target 142-144 in next 24 hr. (2) Acute UTI (urinary tract infection): - On Abx (3) Severe sepsis: History of Present Illness Reason for Consultation: Hypernatremia Attending Physician: Stella Perry MD History of Present Illness 77 yr old with PMH of HTN/HLD, gastroparesis,prediabetes, cystocele ,OA, She was a/ to the medical services with confusion after been found on the floor. ER labs were significant for raised WCC , Raised BUn of 56 , Na/cl-156/125, and Hypokalemia.CK was normal.U/ a was positive for LE. Imaging showed R glenohumeral dislocation with no fracture.f/u xray after reduction were satisfactory.Vitals stable. Alert , awake on examination.No pedal edema, no SOB. Allergies Allergy/AdvReac Type Severity Reaction Status Date / Time No Known Allergies Allergy Verified 07/19/22 03:44 Home Medications Medication Instructions Recorded Confirmed Type aspirin 81 mg capsule,delayed 81 mg PO DAILY 07/19/22 07/19/22 History release atenolol 50 mg tablet 50 mg PO DAILY 07/19/22 07/19/22 History atorvastatin 10 mg tablet 10 mg PO DAILY 07/19/22 07/19/22 History benzonatate 100 mg capsule 100 mg PO TID PRN Cough 07/19/22 07/19/22 History escitalopram oxalate 20 mg tablet 20 mg PO DAILY 07/19/22 07/19/22 History lisinopril 10 mg tablet 10 mg PO HS 07/19/22 07/19/22 History mirtazapine 15 mg tablet 15 mg PO HS 07/19/22 07/19/22 History omeprazole 20 mg capsule,delayed 20 mg PO BID 07/19/22 07/19/22 History release Patient History Social History Smoking Status: Never smoker Hx Alcohol Use: No Hx Substance Use: No Preferred Language: Malay Communication Ability: Effective 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 Results & Data ([facility]) Vital Signs (Past 12 Hours) Vital Signs Temp Pulse Pulse Resp BP BP Pulse Ox 07/19/22 08:02 36.7 C 92 H 18 124/76 96 07/19/22 07:53 92 H 18 139/76 94 07/19/22 06:00 101 H 14 158/84 H 95 07/19/22 05:30 98 H 13 151/81 H 96 07/19/22 05:00 99 H 15 143/76 H 94 07/19/22 04:43 105 H 21 121/84 96 07/19/22 04:00 100 H 16 142/76 H 94 07/19/22 03:10 100 H 18 137/84 96 07/19/22 03:02 106 H 21 137/86 99 07/19/22 02:02 105 H 18 162/96 H 99 07/19/22 01:02 36.6 C 101 H 17 95 07/19/22 00:00 36.1 C L 99 H 20 152/98 H 98 07/18/22 22:47 106 H 18 134/103 H 100 07/18/22 22:33 117 H 26 H 100 07/18/22 22:26 97 07/18/22 22:26 117 H 31 H 134/103 H 99 07/18/22 22:26 35.2 C L 120 H 25 H 145/120 H 97 O2 Del Method 07/19/22 08:02 Room Air 07/19/22 07:53 07/19/22 06:00 Room Air 07/19/22 05:30 Room Air 07/19/22 05:00 Room Air 07/19/22 04:43 Room Air 07/19/22 04:00 Room Air 07/19/22 03:10 Room Air 07/19/22 03:02 Room Air 07/19/22 02:02 Room Air 07/19/22 01:02 Room Air 07/19/22 00:00 Room Air 07/18/22 22:47 Room Air 07/18/22 22:33 Room Air 07/18/22 22:26 Room Air 07/18/22 22:26 Room Air 07/18/22 22:26 Room Air Laboratory Results 07/19/22 00:08 07/19/22 00:08
[2022-07-19 10:12] LABS: Basophils # (auto) 0.04 K/uL (0-0.2); Basophils % (auto) 0.2 %; Hematocrit (blood only) 50.1 % (34.1-44.9); Hemoglobin 16.6 g/dl (12.0-16.0); Immature Granulocytes # (auto) 0.22 K/uL (0.00-0.02); Lymphocytes # (auto) 2.89 K/uL (1.2-3.4); Lymphocytes % (auto) 12.7 %; Mean Corpuscular Hemoglobin 31.3 pg (25.0-34.0); Mean Corpuscular Hgb Conc 33.1 g/dL (32.0-36.0); Mean Corpuscular Volume 94.5 fL (80.0-100.0); Mean Platelet Volume 10.6 fL (9.4-12.3); Monocytes % (auto) 11.5 %; Neutrophils # (auto) 16.93 K/uL (1.4-6.5); Neutrophils % (auto) 74.6 %; Platelet Count 315 K/uL (130-400); RDW Coefficient of Variation 14.6 % (11.5-14.5); White Blood Count 22.68 K/ul (4.8-10.8)
[2022-07-19 10:46] LABS: BUN Creatinine Ratio 54.2 (10-20); Creatinine Clr Calc Pharmacy 40.9 ml/min; Est GFR (African American) 65.2 ml/min; Est GFR (Non-African American) 56.2 ml/min; Magnesium 2.3 mg/dl (1.7-2.4); Troponin I High Sensitivity 80.7 pg/ml (0-14)
[2022-07-19 11:08] LABS: Estimated Average Glucose 126 mg/dl
[2022-07-19] MEDS ORDERED: INFLUENZA VACCINE HIGH DOSE PF 65+ 0.7 ML SYR IM ONE (11:13)
[2022-07-19] MEDS: ENOXAPARIN INJ 40 MG/0.4 ML SYR SQ SCH (11:27)
[2022-07-19] MEDS: ASPIRIN 81 MG ECTAB PO SCH (11:27)
[2022-07-19 12:31] LABS: BUN Creatinine Ratio 53.8 (10-20); Calcium 8.6 mg/dl (8.5-10.1); Creatinine Clr Calc Pharmacy 39.6 ml/min; Est GFR (African American) 69.5 ml/min; Potassium 4.2 mmol/L (3.5-5.1)
[2022-07-19 12:34] LABS: Troponin I High Sensitivity 84.7 pg/ml (0-14)
[2022-07-19] MEDS: DEXTROSE 5% 1,000 ML IV SCH ×2 (13:01→21:10)
[2022-07-19] MEDS: ACETAMINOPHEN 325 MG TAB PO PRN (15:40)
[2022-07-19] MEDS ORDERED: CEFEPIME 2,000 MG in SYRINGE 0 ML IV SCH (18:00)
[2022-07-19 18:52] LABS: BUN Creatinine Ratio 50.5 (10-20); Calcium 8.4 mg/dl (8.5-10.1); Potassium 3.7 mmol/L (3.5-5.1)
[2022-07-19] MEDS: cefTRIAXone SODIUM 1,000 MG in DEXTROSE 5% 50 ML IV SCH (20:28)
[2022-07-19] MEDS: MIRTAZAPINE TAB 15 MG TAB PO SCH (20:29)
[2022-07-19] MEDS: lisinopril 10 MG TAB PO SCH (20:29)
[2022-07-19 23:42] LABS: Calcium 8.4 mg/dl (8.5-10.1); Creatinine Clr Calc Pharmacy 41.5 ml/min; Est GFR (African American) 73.4 ml/min; Est GFR (Non-African American) 63.4 ml/min; Potassium 3.5 mmol/L (3.5-5.1)
[2022-07-20] MEDS: DEXTROSE 5% 1,000 ML IV SCH ×2 (05:58→16:09)
[2022-07-20] MEDS: ACETAMINOPHEN 325 MG TAB PO PRN ×4 (06:00→20:59)
[2022-07-20 06:07] LABS: Hematocrit (blood only) 42.9 % (34.1-44.9); Hemoglobin 14.4 g/dl (12.0-16.0); Mean Corpuscular Hemoglobin 31.9 pg (25.0-34.0); Mean Corpuscular Hgb Conc 33.6 g/dL (32.0-36.0); Mean Corpuscular Volume 95.1 fL (80.0-100.0); Mean Platelet Volume 10.5 fL (9.4-12.3); Platelet Count 240 K/uL (130-400); RDW Coefficient of Variation 14.1 % (11.5-14.5); RDW Standard Deviation 49.1 fL (36.4-46.3); Red Blood Count 4.51 M/uL (3.93-5.22); White Blood Count 14.05 K/ul (4.8-10.8)
[2022-07-20 06:30] LABS: BUN Creatinine Ratio 36.7 (10-20); Calcium 8.4 mg/dl (8.5-10.1); Creatinine Clr Calc Pharmacy 45.7 ml/min; Est GFR (African American) 82.5 ml/min; Est GFR (Non-African American) 71.2 ml/min; Potassium 3.6 mmol/L (3.5-5.1)
[2022-07-20] MEDS: ASPIRIN 81 MG ECTAB PO SCH (08:27)
[2022-07-20] MEDS: ATENOLOL 50 MG TABLET PO SCH (08:30)
[2022-07-20] MEDS: ATORVASTATIN 10 MG TAB PO SCH (08:30)
[2022-07-20] MEDS: ESCITALOPRAM OXALATE 20 MG TAB PO SCH (08:31)
[2022-07-20] MEDS: ENOXAPARIN INJ 40 MG/0.4 ML SYR SQ SCH (08:31)
[2022-07-20] MEDS: PANTOprazole 40 MG TAB PO SCH ×2 (08:33→20:52)
--- NOTE | 2022-07-20 10:25 | Nephrology Progress Note ---
Date of Service July 20, 2022 Assessment & Plan (1) Acute hypernatremia: Plan: -2/ Volume depletion-- Poor oral intake/ Sepsis. - Sna - 147 in am, Continue with 1 more liter bag, then convert to Isolyte P at 75 mls /hr. - UOP is reasonable, BP has been good. . (2) Acute UTI (urinary tract infection): Plan: - On Abx (3) Severe sepsis: Admission and Anticipated Discharge Date Admission Date: July 19, 2022 Subjective Comfortable no SOB No Pedal edema Review of Systems Review of Systems: All systems reviewed & are unremarkable except as noted in HPI & below Physical Exam Physical Exam: General - Frail lady, not in distress. 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 Results & Data ([facility]) Vital Signs (Past 12 Hours) Vital Signs Temp Pulse Pulse Resp BP Pulse Ox O2 Del Method 07/20/22 08:05 53 L 07/20/22 08:00 36.9 C 66 16 104/61 94 Room Air 07/20/22 02:47 36.4 C L 57 L 18 125/69 97 Room Air 07/19/22 23:58 36.3 C L 55 L 18 124/68 96 Room Air Laboratory Results 07/20/22 05:48 07/20/22 05:48
--- NOTE | 2022-07-20 11:48 | Hospitalist Progress Note ---
Date of Service July 20, 2022 Assessment & Plan (1) Inferior dislocation of right shoulder: (2) Fall: (3) Acute dehydration: (4) Hypernatremia: Plan 77-year-old woman with hypertension, hyperlipidemia who lives alone and was brought in after found down following a wellness check by neighbors on 911 initiated by daughters who had not heard from her for few days. On presentation, Labs notable for leukocytosis of 22,000,Hemoglobin of 16.6, hematocrit of 50, admitting sodium level of 156, chloride of 125, BUN of 65, lactate of 3.42, total bilirubin of 1.2, UA showed trace leukocyte esterase. Fall Encephalopathy Hypernatremia Dehydration CT head did not show any acute fracture Shoulder XR noted Rt inferior shoulder dislocation s/p reduction in ER On shoulder sling Leukocytosis and elevated lactate may be related to dehydration and being found down However, sepsis is a possibility Hypernatremia improving. Na is 147 today Discussed with Nephro. Continue IVF D5W @100cc/h and monitor Follow up urine culture Continue ceftriaxone for now Avoid opioids. Tylenol prn PT/OT eval Encephalopathy improving Can remove sanchez and use puerwick Trop was mildly elevated on presentation at 84. Trended down EKG showed prolonged QTc 524. Some ST-T changes. No previous EKG Considering fall or syncope was unwitnessed. Will repeat EKG and get TTE Hemoglobin A1c is 6. Hence patient is prediabetic Carb controlled diet Continue home medications atenolol, lisinopril for HTN DVT ppx- lovenox Admission and Anticipated Discharge Date Admission Date: July 19, 2022 Subjective Patient seen and examined Patient is oriented to person and place Answers questions appropriately. Confused with some questions Reports some pain on right UE with movement Denied any nausea, vomiting, abd pain, diarrhea, constipation Denied headache, dizziness Denied fevers, chills Physical Exam Constitutional: + well hydrated; no acute distress Eyes: PERRL, conjunctivae normal, anicteric sclerae ENMT: external ear and nose normal, oropharynx normal Respiratory: normal respiratory effort, lungs clear to auscultation Gastrointestinal (Abdomen): normal bowel sounds, soft, nontender, no hepatosplenomegaly Musculoskeletal: RUE in sling Neurologic: PERRL, EOMI, accommodation nl, no face palsy, no dysarthria Psychiatric: Alert and oriented to person, knows she is in a hospital but does not remember the name Not oriented to time Confused Results & Data Results & Data ([facility]) Vital Signs (Past 12 Hours) Vital Signs Temp Pulse Pulse Resp BP Pulse Ox O2 Del Method 07/20/22 11:07 36.5 C 57 L 16 109/65 96 Room Air 07/20/22 08:05 53 L 07/20/22 08:00 36.9 C 66 16 104/61 94 Room Air 07/20/22 02:47 36.4 C L 57 L 18 125/69 97 Room Air 07/19/22 23:58 36.3 C L 55 L 18 124/68 96 Room Air Laboratory Results Abnormal lab results 07/19/22 07/19/22 07/19/22 Range/Units 17:30 18:25 23:03 WBC (4.8-10.8) K/ul RDW Std Deviation (36.4-46.3) fL Sodium 147 H 146 H (136-145) mmol/L Chloride 119 H 116 H (98-107) mmol/L BUN 48 H 40 H (6-23) mg/dl BUN/Creatinine Ratio 50.5 H 46.0 H (10-20) Glucose 179 H 116 H (70-99(Fasting)) mg/dl Calcium 8.4 L 8.4 L (8.5-10.1) mg/dl Troponin I High Sens 54.7 H* D (0-14) pg/ml 07/20/22 07/20/22 Range/Units 05:48 05:48 WBC 14.05 H (4.8-10.8) K/ul RDW Std Deviation 49.1 H (36.4-46.3) fL Sodium 147 H (136-145) mmol/L Chloride 118 H (98-107) mmol/L BUN 29 H (6-23) mg/dl BUN/Creatinine Ratio 36.7 H (10-20) Glucose 127 H (70-99(Fasting)) mg/dl Calcium 8.4 L (8.5-10.1) mg/dl Troponin I High Sens (0-14) pg/ml (1) Inferior dislocation of right shoulder Encounter type: initial encounter Qualified Code(s): S43.034A - Inferior dislocation of right humerus, initial encounter
[2022-07-20 16:55] LABS: BUN Creatinine Ratio 23.9 (10-20); Calcium 8.6 mg/dl (8.5-10.1); Creatinine Clr Calc Pharmacy 39.2 ml/min; Est GFR (African American) 68.6 ml/min; Est GFR (Non-African American) 59.2 ml/min; Potassium 3.7 mmol/L (3.5-5.1)
[2022-07-20] MEDS: MIRTAZAPINE TAB 15 MG TAB PO SCH (20:51)
[2022-07-20] MEDS: lisinopril 10 MG TAB PO SCH (20:51)
[2022-07-20] MEDS: cefTRIAXone SODIUM 1,000 MG in DEXTROSE 5% 50 ML IV SCH (21:34)
[2022-07-21] MEDS: DEXTROSE 5% 1,000 ML IV SCH ×2 (02:10→13:09)
[2022-07-21 06:44] LABS: Hemoglobin 13.8 g/dl (12.0-16.0); Mean Corpuscular Hemoglobin 31.4 pg (25.0-34.0); Mean Corpuscular Hgb Conc 33.7 g/dL (32.0-36.0); Mean Corpuscular Volume 93.4 fL (80.0-100.0); Platelet Count 208 K/uL (130-400); RDW Coefficient of Variation 13.8 % (11.5-14.5); RDW Standard Deviation 47.9 fL (36.4-46.3); Red Blood Count 4.39 M/uL (3.93-5.22); White Blood Count 10.86 K/ul (4.8-10.8)
[2022-07-21 07:18] LABS: BUN Creatinine Ratio 20.5 (10-20); Creatinine Clr Calc Pharmacy 50.4 ml/min; Est GFR (African American) 83.8 ml/min; Est GFR (Non-African American) 72.3 ml/min; Magnesium 1.7 mg/dl (1.7-2.4); Potassium 3.4 mmol/L (3.5-5.1)
[2022-07-21] MEDS ORDERED: PERFLUTREN LIPID MICROSPHERE (DEFINITY) IV ONE (07:40)
[2022-07-21] MEDS: ASPIRIN 81 MG ECTAB PO SCH (08:29)
[2022-07-21] MEDS: PANTOprazole 40 MG TAB PO SCH ×2 (08:29→20:28)
[2022-07-21] MEDS: ATORVASTATIN 10 MG TAB PO SCH (08:30)
[2022-07-21] MEDS: ENOXAPARIN INJ 40 MG/0.4 ML SYR SQ SCH (08:30)
[2022-07-21] MEDS: ATENOLOL 50 MG TABLET PO SCH (08:30)
[2022-07-21] MEDS: ESCITALOPRAM OXALATE 20 MG TAB PO SCH (08:30)
--- NOTE | 2022-07-21 08:48 | Nephrology Progress Note ---
Date of Service July 21, 2022 Assessment & Plan (1) Acute hypernatremia: Plan: -2/2 Volume depletion-- Poor oral intake/ Sepsis. slowly improving sodium -continue D5W at 100 mL/hr -will give IV K 60 mEq total running w/ IVF -daily bmp should be adequate for now - UOP is reasonable, BP has been good -no need to replete phos since she is eating now (2) Acute UTI (urinary tract infection): Plan: - On Abx (3) Severe sepsis: Admission and Anticipated Discharge Date Admission Date: July 19, 2022 Subjective up in chair and alert today; eating now; no sob, noworsening edema; no dysuria/gross hematuria Review of Systems Review of Systems: All systems reviewed & are unremarkable except as noted in Subjective Physical Exam Constitutional: well developed, + thin and + frail appearing; no acute distress Eyes: EOM intact bilaterally ENMT: Ears: no external ear abnormality Nose: no external nose abnormality Mouth: + dry oral mucous membranes Neck: no nuchal rigidity Respiratory: normal respiratory effort Auscultation: + diminished lung sounds Cardiovascular: Rate/Rhythm: regular rate and regular rhythm Extremities: no edema Gastrointestinal (Abdomen): Inspection/Auscultation: normal bowel sounds Percussion/Palpation: abdomen soft; abdomen nontender Musculoskeletal: Extremities: strength 5/5 throughout R arm in sling Skin: no rashes, warm and dry Neurologic: mcnair, fluent speech, no tremor Psychiatric: Orientation: oriented x 3 Speech: normal rate/rhythm/volume of speech Results & Data ([facility]) Vital Signs (Past 12 Hours) Vital Signs Temp Pulse Pulse Resp BP Pulse Ox O2 Del Method 07/21/22 07:59 36.6 C 61 18 165/79 H 98 Room Air 07/21/22 07:18 55 L 07/21/22 03:00 36.7 C 66 18 112/73 97 Room Air 07/20/22 23:08 62 07/20/22 23:01 36.6 C 61 16 114/63 97 Room Air Laboratory Results 07/21/22 05:45 07/21/22 05:45
[2022-07-21] MEDS: POTASSIUM CHLORIDE / WTR 10 MEQ/100 ML PLCT IV SCH ×6 (09:14→17:04)
--- NOTE | 2022-07-21 09:16 | Electrocardiogram Report ---
Test Reason : Blood Pressure : / mmHG Vent. Rate : 059 BPM Atrial Rate : 059 BPM P-R Int : 122 ms QRS Dur : 094 ms QT Int : 440 ms P-R-T Axes : 001 011 064 degrees QTc Int : 436 ms Sinus bradycardia Nonspecific T wave abnormality Abnormal ECG Confirmed by Darrius Ng ([id number]) on 07/21/2022 9:16:17 AM Referred By: REFERRED SELF Confirmed By:Efra Ng
--- NOTE | 2022-07-21 11:25 | Hospitalist Progress Note ---
Date of Service July 21, 2022 Assessment & Plan (1) Inferior dislocation of right shoulder: (2) Fall: (3) Acute dehydration: (4) Hypernatremia: Plan 77-year-old woman with hypertension, hyperlipidemia who lives alone and was brought in after found down following a wellness check by neighbors on 911 initiated by daughters who had not heard from her for few days. On presentation, Labs notable for leukocytosis of 22,000,Hemoglobin of 16.6, hematocrit of 50, admitting sodium level of 156, chloride of 125, BUN of 65, lactate of 3.42, total bilirubin of 1.2, UA showed trace leukocyte esterase. Fall Encephalopathy, likely metabolic Hypernatremia Dehydration CT head did not show any acute fracture Shoulder XR noted Rt inferior shoulder dislocation s/p reduction in ER On shoulder sling Leukocytosis and elevated lactate may be related to dehydration and being found down However, Sepsis is a possibility. Based on history and findings so far, this is less likely Leukocytosis resolved Hypernatremia resolved Na is 145 today Currently on IVF Replete hypokalemia Cultures negative Stop Abx Avoid opioids. Tylenol prn PT recommends rehab Encephalopathy resolved Trop was mildly elevated on presentation at 84. Trended down EKG showed prolonged QTc 524. Some ST-T changes. No previous EKG Possible demand ischemia Hemoglobin A1c is 6. Hence patient is prediabetic Carb controlled diet Continue home medications atenolol, lisinopril for HTN DVT ppx- lovenox CM on board Admission and Anticipated Discharge Date Admission Date: July 19, 2022 Subjective Patient seen and examined Patient is oriented to person, place and time Confusion is resolved Reported she was trying to move around furniture in the house, fell and got trapped. She thought she might have been there for up to 2 days Reports some pain on right UE with movement Denied any nausea, vomiting, abd pain, diarrhea, constipation Denied headache, dizziness Denied fevers, chills Physical Exam Constitutional: + well hydrated; no acute distress Eyes: PERRL, conjunctivae normal, anicteric sclerae ENMT: external ear and nose normal, oropharynx normal Respiratory: normal respiratory effort, lungs clear to auscultation Cardiovascular: Rate/Rhythm: regular rate and regular rhythm S1 S2 Gastrointestinal (Abdomen): normal bowel sounds, soft, nontender, no hepatosplenomegaly Musculoskeletal: RUE in sling Neurologic: PERRL, EOMI, accommodation nl, no face palsy, no dysarthria Psychiatric: A+Ox3, euthymic affect Results & Data Results & Data ([facility]) Vital Signs (Past 12 Hours) Vital Signs Temp Pulse Pulse Resp BP Pulse Ox O2 Del Method 07/21/22 07:59 36.6 C 61 18 165/79 H 98 Room Air 07/21/22 07:18 55 L 07/21/22 03:00 36.7 C 66 18 112/73 97 Room Air Laboratory Results Abnormal lab results 07/20/22 07/21/22 07/21/22 Range/Units 16:03 05:45 05:45 WBC 10.86 H (4.8-10.8) K/ul RDW Std Deviation 47.9 H (36.4-46.3) fL Potassium 3.4 L (3.5-5.1) mmol/L Chloride 118 H 115 H (98-107) mmol/L BUN/Creatinine Ratio 23.9 H 20.5 H (10-20) Glucose 164 H 166 H (70-99(Fasting)) mg/dl Calcium 8.0 L (8.5-10.1) mg/dl Phosphorus 2.0 L (2.5-4.9) mg/dl (1) Inferior dislocation of right shoulder Encounter type: initial encounter Qualified Code(s): S43.034A - Inferior dislocation of right humerus, initial encounter
[2022-07-21] MEDS: ACETAMINOPHEN 325 MG TAB PO PRN ×2 (12:48→20:28)
[2022-07-21] MEDS: MIRTAZAPINE TAB 15 MG TAB PO SCH (20:27)
[2022-07-21] MEDS: lisinopril 10 MG TAB PO SCH (20:27)
[2022-07-21] MEDS ORDERED: PREMARIN VAG CRM 14 APPLN/30 GM TUBE PV SCH (21:00)
[2022-07-22] MEDS: DEXTROSE 5% 1,000 ML IV SCH ×2 (02:21→12:24)
[2022-07-22 06:41] LABS: BUN Creatinine Ratio 16.4 (10-20); Calcium 7.9 mg/dl (8.5-10.1); Creatinine Clr Calc Pharmacy 54.4 ml/min; Est GFR (African American) 90.8 ml/min; Est GFR (Non-African American) 78.3 ml/min; Magnesium 1.6 mg/dl (1.7-2.4); Phosphorus 2.2 mg/dl (2.5-4.9); Potassium 3.5 mmol/L (3.5-5.1)
[2022-07-22] MEDS ORDERED: MAGNESIUM SULFATE / D5W 1 GM/100 ML BAG IV ONE (07:38)
[2022-07-22] MEDS: PANTOprazole 40 MG TAB PO SCH (08:15)
[2022-07-22] MEDS: ENOXAPARIN INJ 40 MG/0.4 ML SYR SQ SCH (08:16)
[2022-07-22] MEDS: ATORVASTATIN 10 MG TAB PO SCH (08:16)
[2022-07-22] MEDS: ESCITALOPRAM OXALATE 20 MG TAB PO SCH (08:16)
[2022-07-22] MEDS: ATENOLOL 50 MG TABLET PO SCH (08:16)
[2022-07-22] MEDS: ASPIRIN 81 MG ECTAB PO SCH (08:16)
--- NOTE | 2022-07-22 11:33 | Nephrology Progress Note ---
Date of Service July 22, 2022 Assessment & Plan (1) Acute hypernatremia: Plan: -2/2 Volume depletion-- Poor oral intake/ Sepsis. slowly improving sodium- within normal range pass 2 days -Stop IV fluids -Agree with IV Mag -no need to replete phos since she is eating now NEPHROLOGY DC RECS -Check BMP, Mag, Phos - Twice weekly (Mon/Thurs) x 3 wks by [facility] providers -If d/c from [facility] prior to 3wks labs to be fu with PCP -Fu with Nephro as needed / if further issues -Resume outpt meds per H/P -No Mag supplement on d/c Care Coordinated Admission and Anticipated Discharge Date Admission Date: July 19, 2022 Supervising Physician Co-Signing Physician Notes pt continues to do well. eating, ambulating w/ cane and splint and asst. no sob, no edema, no c/o. up in chair, thin, oriented x 3, diminished lungs but clear; no edema, RRR. Assessment and plan as per PA note which I have reviewed and w/ which I agree. F/u labs per accepting outpatient providers; no nephro f/u appt unless electrolyte concerns persist. Subjective Up in chair and alert; no sob, no worsening edema; no dysuria/gross hematuria. Appetite good Review of Systems Review of Systems: All systems reviewed & are unremarkable except as noted in Subjective Physical Exam Physical Exam: General - Frail lady, not in distress. CVS-Normal heart sounds, no murmur Resp- Normal breath sound , no wheezes, Abdomen- soft , non tender , non distended Normal [employer]- Alert , oriented X 3 Extremities- NO pedal edema,pain in right shoulder. Results & Data ([facility]) Vital Signs (Past 12 Hours) Vital Signs Temp Pulse Pulse Resp BP Pulse Ox O2 Del Method 07/22/22 08:15 66 07/22/22 07:21 36.7 C 56 L 18 152/63 H 92 Room Air 07/22/22 07:17 58 L 07/22/22 03:24 36.5 C 68 18 138/67 95 Room Air Laboratory Results 07/21/22 05:45 07/22/22 05:52
[2022-07-22] MEDS: ACETAMINOPHEN 325 MG TAB PO PRN (13:16)
--- NOTE | 2022-07-22 13:22 | Discharge Summary ---
Discharge Summary Date of Service July 22, 2022 Notes For Next Care Provider Follow-up recovery at rehab. Follow-up recovery of right shoulder dislocation has been reduced. Providers at [facility] to check BMP twice a week for 3 weeks to monitor electrolytes Medication Changes From Visit No medication changes Admission HPI Per Admitting Provider A 77-year-old female with past medical history significant for hyperlipidemia, prediabetes, hypertension, gastroparesis, gastroesophagitis, cystocele, osteoporosis, depression, who lives alone, comes with a fall. As per daughter, patient is active. She does not use any walker or cane. She usually cooks her own food, takes care of herself. She can cut the grass. Daughter does not call regularly, but calls and checks up her. When she does not answer the phone, she was not worried, because she does forget to charge her phone.Her other daughter was calling for the last 4 days and she was not answering. Finally, they called the neighbors and 911 to check on her. With the neighbor checked on her, she was found confused, fallen between dresser and bed, which was very narrow space. The patient does not remember how she fell.She was brought to the hospital and she was very altered when she came in. Her labs showed white count was 22,000, sodium was 156, potassium 3.2, BUN 65, creatinine normal at 0.8. Troponin I high sensitivity then was 93. Total creatinine kinase of 71. Urinalysis positive and she also had right right shoulder dislocation. After given fentanyl, shoulder was reduced in the ER. Currently, alert, awake, and oriented to name and place. Could tell her date of , could tell the month. Daughter, who lives in [place], came, is in the room. Except for right shoulder pain, she denies any other pain. No headache, no neck pain. No back pain or belly pain. No chest pain, no pain in the legs. Does not feel short of breath. No cough. Afebrile. No nausea. Normal bowel and bladder movements per the patient , Appetite is not great but she can swallow okay. Admission Exam Per Admitting Provider GENERAL: The patient is old and frail, not in acute distress. VITAL SIGNS: Temperature 36.6, pulse 96, respiratory rate 21, blood pressure 137/86, oxygen 99% on room air. HEENT: Pupils equal, round and reactive to light. Oral mucosa somewhat dry. NECK: No JVD, no neck masses. CARDIOVASCULAR: S1 and S2 heard. Tachycardia. No murmurs. RESPIRATORY SYSTEM: Normal AP diameter. No accessory muscle use. No wheezing, no crackles. ABDOMEN: Soft, bowel sounds present, nontender, no distention. CENTRAL NERVOUS SYSTEM: Alert and oriented to name and place, could tell the month as June, could not tell the year and date. Recent and remote memory intact. No facial droop. Speech is clear. Moves extremities. EXTREMITIES: Pain with movement of the right shoulder. No edema, no erythema seen. Principal Dx & Hospital Course #1 = Principal Diagnosis (1) Inferior dislocation of right shoulder: (2) Fall: (3) Acute dehydration: (4) Hypernatremia: Plan 77-year-old woman with hypertension, hyperlipidemia who lives alone and was brought in after found down following a wellness check by neighbors on 91 initiated by daughters who had not heard from her for few days. On presentation, Labs notable for leukocytosis of 22,000,Hemoglobin of 16.6, hematocrit of 50, admitting sodium level of 156, chloride of 125, BUN of 65, lactate of 3.42, total bilirubin of 1.2, UA showed trace leukocyte esterase. Fall Encephalopathy, likely metabolic Hypernatremia Dehydration CT head did not show any acute fracture Shoulder XR noted Rt inferior shoulder dislocation s/p reduction in ER On shoulder sling Leukocytosis and elevated lactate may be related to dehydration and being found down However, Sepsis is a possibility though this was ruled out Infectious work up negative Leukocytosis resolved Hypernatremia Sodium was 156 on presentation Was managed with IVF. Now resolved. Sodium is 142 today Has hypomagnesemia today. Was repleted prior to discharge Encephalopathy resolved Trop was mildly elevated on presentation at 84. Trended down EKG showed prolonged QTc 524. Some ST-T changes. No previous EKG Possible demand ischemia Hemoglobin A1c is 6. Hence patient is prediabetic Carb controlled diet Continue home medications atenolol, lisinopril for Hypertension Patient discharged to [facility] for rehab Discharge Exam Constitutional + well hydrated; no acute distress Eyes PERRL, conjunctivae normal, anicteric sclerae ENMT external ear and nose normal, oropharynx normal Respiratory normal respiratory effort, lungs clear to auscultation Cardiovascular Rate/Rhythm: regular rate and regular rhythm S1 S2 Gastrointestinal (Abdomen) normal bowel sounds, soft, nontender, no hepatosplenomegaly Musculoskeletal RUE in sling Neurologic PERRL, EOMI, accommodation nl, no face palsy, no dysarthria Psychiatric A+Ox3, euthymic affect Updated Medication List Medication Instructions Recorded Confirmed Type aspirin 81 mg capsule,delayed 81 mg PO DAILY 07/19/22 07/19/22 History release atenolol 50 mg tablet 50 mg PO DAILY 07/19/22 07/19/22 History atorvastatin 10 mg tablet 10 mg PO DAILY 07/19/22 07/19/22 History benzonatate 100 mg capsule 100 mg PO TID PRN Cough 07/19/22 07/19/22 History escitalopram oxalate 20 mg tablet 20 mg PO DAILY 07/19/22 07/19/22 History lisinopril 10 mg tablet 10 mg PO HS 07/19/22 07/19/22 History mirtazapine 15 mg tablet 15 mg PO HS 07/19/22 07/19/22 History omeprazole 20 mg capsule,delayed 20 mg PO BID 07/19/22 07/19/22 History release Hospital Stay Data Consultations 07/19/22 01:38 ED Decision to Admit Stat 07/19/22 08:00 Consult Nephrology Routine Diagnostic Imagining Performed 07/18/22 23:50 CT cervical spine wo con Urgent Skeletal structures: The skeletal structures are osteopenic. There is no evidence of fracture or subluxation involving the cervical spine. Vertebral body height and alignment are maintained. Anterior osteophytes are seen throughout the The odontoid process and lateral masses are intact. The atlantoaxial articulation is preserved noting productive degenerative change. The spinous processes appear intact. There is mild cervical spondylosis, with facet arthropathy seen at several levels. Intervertebral discs: There is moderate disc space narrowing at C3-C4, C4-C5, C5-C6, and C6-C7. Central canal: Posterior disc osteophyte complexes are seen at all cervical levels between C3-C4 and C6-C7. This likely contributes to mild multilevel acquired compromising the central canal. Soft tissues: The prevertebral and paraspinous soft tissues are within normal limits. Atherosclerotic calcification is noted in the carotid bulbs. Calvarium: The visualized calvarium at the skull base appears intact. Brain parenchyma: Partially visualized brain parenchyma at the skull base is within normal limits noting age-related involutional change. Sinuses and mastoids: The visualized paranasal sinuses are clear. The mastoid air cells are well pneumatized. Lung apices: Clear as visualized. IMPRESSION: There is no evidence of fracture or subluxation involving the cervical spine. CT head/brain wo con Urgent Brain parenchyma: There is age-related involutional change noting mild subcortical and periventricular microangiopathic disease. There is no hemorrhage, mass effect, or evidence of acute territorial ischemia by CT criteria. Verdin-white matter differentiation is preserved. No extra-axial fluid collection is seen. Ventricles, sulci, cisterns: Prominent secondary to involutional change. Intracranial vasculature: There is atherosclerotic calcification of the cavernous carotid arteries. Calvarium: The skeletal structures are osteopenic. No depressed calvarial fracture is identified. Sinuses and mastoids: The visualized paranasal sinuses are clear. The mastoid air cells are well pneumatized. Orbits: The bony orbits are grossly intact. IMPRESSION: There is no hemorrhage, mass effect, or evidence of acute territorial ischemia by CT criteria. Pending Results Patient Have Any Pending Studies at Discharge: No Discharge Instructions Given to Patient (Per Discharging Provider) Mrs Sandra Ribera were brought to the hospital after being found down. You were evaluated and found to have right shoulder dislocation which was reduced. You were also found to have high sodium levels and was confused. These were managed and are all normalized. You are being discharged to [facility] for rehab. Please use the shoulder sling and continue rehab at [facility]. Please do blood tests - Basic metabolic panel, magnesium, phosphorus twice a week for next 3 weeks while you are at [facility] It was a pleasure taking care of you. Total Time Total Time Spent Total Time Spent (In Minutes): 45 Total Time Includes: Examination of the Patient, Discharge Planning, Medication Reconciliation and Communication With Other Providers
== END 2022-07-22 14:24 | DRG 562 ==
LOC: ED 21:47 → EDINP 07-19 02:48 → 2S 07-19 05:34